=== PATIENT | male | born 1985 | race Caucasian/White ===

== ENCOUNTER 2020-08-26 10:05 | Emergency (ER) | payer BC ==
[~2020-08-26] VITALS: Ht 160 cm; Wt 77.1 kg
[2020-08-26 10:30] VITALS: BP 158/95
== END 2020-08-26 12:00 | disposition home or self-care (01) ==
LOC: ER 10:10
DX: J18.9 Pneumonia, unspecified organism (principal)
CPT/HCPCS: 71045-TC

== ENCOUNTER 2020-09-03 15:12 | Emergency (ER) | payer BC ==
[~2020-09-03] VITALS: Ht 175.3 cm; Wt 79.4 kg
[2020-09-03 15:43] VITALS: BP 153/89
== END 2020-09-03 16:04 | disposition home or self-care (01) ==
LOC: ER 15:18
DX: Z02.89 Encounter for other administrative examinations (principal)